=== PATIENT | male | born 1995 | race Caucasian/White ===

== ENCOUNTER 2019-01-31 09:08 | Outpatient (CLI) | payer BC ==
[2019-01-31 09:50] LABS: #Basophils 0.1 thou/uL (0.0-0.2); #Lymphocytes 1.2 thou/uL (1.20-3.40); #Monocytes 0.4 thou/uL (0.11-0.59); #Neutrophils 2.6 thou/uL (1.40-6.50); %Eosinophils 0.8 % (0.0-10.0); %Lymphocytes 27.2 % (21.0-51.0); %Monocytes 8.8 % (0.0-10.0); %Neutrophils 61.2 % (42.0-75.0); Hemoglobin 17.5 g/dL (14.0-18.0); Mean Corpuscular HGB CONC 35.2 g/dL (32.0-36.0); Mean Corpuscular Hemoglobin 31.5 pg (27.0-31.0); Mean Corpuscular Volume 89.4 fL (78.0-98.0); Mean Platelet Volume 7.2 fL (7.4-10.4); Platelet Count 185 thou/uL (130-400); RBC Distribution Width 12.2 % (11.5-14.5); Red Blood Cell (RBC) Count 5.57 mill/uL (4.70-6.10); White Blood Cell (WBC) Count 4.3 thou/uL (4.8-10.8)
[2019-01-31 10:19] LABS: Anion Gap 11 mmol/L (10-20); BUN (Urea Nitrogen) 15 mg/dL (8.9-20.6); Calc. Creatinine Clearance 0 mL/min (70-130); Calcium 9.9 mg/dL (7.8-10.44); Carbon Dioxide 26 mmol/L (22-29); Chloride 108 mmol/L (98-107); Estimated GFR-MDRD 81; Glucose 91 mg/dL (70-105); Potassium 4.3 mmol/L (3.5-5.1); Sodium 141 mmol/L (136-145)
== END 2019-01-31 09:09 | disposition home or self-care (01) ==
LOC: LABBT 09:08
PROVIDERS: ATTEND Surgery
DX: Z01.812 Encounter for preprocedural laboratory examination (principal); K40.90 Unilateral inguinal hernia, without obstruction or gangrene, not specified as recurrent
CPT/HCPCS: 80048; 85025

== ENCOUNTER 2019-02-03 11:40 | Day surgery (SDC) | payer BC ==
[2019-01-31 09:14] VITALS: BMI 23.7
[2019-02-03] MEDS ORDERED: Bupivacaine/Epinephrine 0.25% 30 ML VIAL ONE (12:26)
[2019-02-03] MEDS ORDERED: Fentanyl 100 MCG/2 ML VIAL ONE ×2 (12:40→14:26)
[2019-02-03] MEDS ORDERED: Glycopyrrolate 0.2 MG/ML 5 ML SYRINGE ONE (12:54)
[2019-02-03] MEDS ORDERED: Rocuronium Bromide 10 MG/ML (10ML VIAL) ONE (12:54)
[2019-02-03] MEDS ORDERED: PROPOFOL 200 MG/20 ML VIAL ONE (12:54)
[2019-02-03] MEDS ORDERED: Ketorolac Tromethamine 30 MG/ML VIAL ONE (12:54)
[2019-02-03] MEDS ORDERED: Ondansetron PF 4 MG/2 ML Vial ONE (12:54)
[2019-02-03] MEDS ORDERED: Lidocaine 1% PF 5 ML VIAL ONE (12:54)
[2019-02-03] MEDS ORDERED: Meperidine HCl/PF 25 MG/ML VIAL ONE (14:07)
[2019-02-03] MEDS ORDERED: HYDROcodone/Acetaminophen 5/325 mg Tablet ONE (15:13)
[2019-02-03] MEDS ORDERED: Ondansetron ODT 4 MG TAB ONE (15:50)
--- NOTE | 2019-02-03 16:48 | OP ---
DATE OF PROCEDURE: 02/03/2019 PREOPERATIVE DIAGNOSIS: Right inguinal hernia. POSTOPERATIVE DIAGNOSIS: Right inguinal hernia. PROCEDURE PERFORMED: Laparoscopic Da Scott robot right inguinal hernia repair with mesh, 3DMax large. ANESTHESIA: General. ESTIMATED BLOOD LOSS: Minimal. COMPLICATIONS: None. SPECIMEN: None. FINDINGS: Right inguinal hernia. DESCRIPTION OF PROCEDURE: The patient was taken to the operating room and laid supine on the operating room table. After general anesthetic was obtained, a [place] was placed. The abdomen was shaved, prepped, and draped in a sterile fashion. A curved incision was made above the umbilicus. Cautery was dissected down to and score the fascia. Abdominal cavity was entered bluntly using a Becca clamp. The 11 mm balloon trocar was placed. The balloon inflated. High-flow pneumoperitoneum was obtained. Left and right abdominal 8 mm robotic trocars were placed. All ports were docked to the robot. The peritoneum was taken down in the right lower quadrant into the right preperitoneal space. Preperitoneal space was bluntly dissected to pubic tubercle medially, anterior superior iliac crest laterally. The shelving edge of inguinal ligament was fully exposed. The indirect hernia was dissected back away from the other cord structures. There was no direct hernia. 3DMax large mesh was brought into the abdomen and the M-labeled medial aspect was placed over the pubic tubercle medially. The mesh was laid out to cover the femoral, the direct and indirect areas. A 2-0 Vicryl was used to suture the mesh to the pubic tubercle medially and to the posterior fascia laterally. The peritoneum was reapproximated using 3-0 STRATAFIX. [place] were removed from the abdomen. All port sites were infiltrated using local anesthetic. All ports were removed under direct visualization. Pneumoperitoneum was let down. PDS was used to close the fascial defect above the umbilicus. All incisions were irrigated and closed using 4-0 Monocryl and Dermabond. The patient was sent to Recovery in stable condition. All instrument counts, needle counts, and lap counts were correct. Job ID: [id number]
== END 2019-02-03 15:56 | disposition home or self-care (01) ==
LOC: SDC 11:40
PROVIDERS: ATTEND Surgery
PROC: 0YU54JZ Supplement Right Inguinal Region with Synthetic Substitute, Percutaneous Endoscopic Approach (ICD-10-PCS; principal; 2019-02-03)
DX: K40.90 Unilateral inguinal hernia, without obstruction or gangrene, not specified as recurrent (principal)
CPT/HCPCS: C1781; J0690; J1885; J2001; J2175; J2405; J2704; J3010; Q0162